=== PATIENT | male | born 1990 | race Caucasian/White ===

== ENCOUNTER 2016-05-27 06:40 | Inpatient (IN) ==
[2016-05-27] MEDS ORDERED: *HR* LORazepam 2 MG/ML VIAL ONE (07:04)
[2016-05-27] MEDS ORDERED: *HR* Rocuronium Bromide 50 MG/5 ML VIAL IVP ONE (07:18)
[2016-05-27] MEDS ORDERED: *HR* Etomidate 20 MG/10 ML AMPUL IVP ONE (07:18)
[2016-05-27] MEDS ORDERED: Propofol 500 MG/50 ML INFUS..BTL ONE (07:18)
[2016-05-27] MEDS ORDERED: *HR* LORazepam 2 MG/ML VIAL IVP ONE (07:24)
[2016-05-27] MEDS ORDERED: Propofol 500 MG/50 ML INFUS..BTL IVC SCH (07:30)
--- NOTE | 2016-05-27 07:31 | Emergency Department Note ---
Overdose - [facility] Narrative Medical decision making narrative: 26-year-old male presents to the ER due to unresponsiveness. Patient presented in respiratory arrest. Corrected with masking. Patient was given a total of 16 mg of Narcan with only a modest reversal in his respiratory status and mentation. Patient continued to eat combative requiring intubation for airway securement and continuation of treatment. Family reports a history of IV drug use in the past. He was found down this morning and his home with an unknown last known well. He was initially hypothermic here at 94.4. Liver applied. EKG shows sinus tachycardia. Head CT, cervical spine CT and chest x-ray are unremarkable. He has a leukocytosis of 20,000 likely stress response. Lactate of 9.6 likely secondary to hypoxia. He also has end organ damage with an ELROY and transaminitis. UDS positive for marijuana and cocaine. Case discussed with the care process manager and admitted to the ICU in stable condition. - Lab Data Lab results reviewed: Yes I reviewed the patient's lab results. Result diagrams: 05/27/16 07:38 05/27/16 07:38 Lab Results 05/27/16 05/27/16 05/27/16 Range/Units 07:38 07:38 07:38 WBC 20.1 H (4.3-11.1) K/mcL RBC 5.21 (4.19-5.50) M/mcL Hgb 16.1 (12.9-16.9) g/dL Hct 51.5 H (37.5-50.1) % MCV 98.8 (83.0-100.0) fL MCH 30.9 (28.0-33.3) pg MCHC 31.3 L (31.6-35.5) g/dL RDW 12.4 (11.5-14.5) % Plt Count 316 (140-400) K/mcL MPV 8.3 L (9.4-12.4) fL Immature Gran % 3.2 (0-4) % Seg Neutrophils % 78.7 % Lymphocytes % 14.1 % Monocytes % 2.7 % Eosinophils % 0.8 % Basophils % 0.5 % Neutrophils # 15.8 H (1.6-8.9) K/mcL Lymphocytes # 2.8 (0.6-4.6) K/mcL Monocytes # 0.6 (0.0-1.3) K/mcL Eosinophils # 0.2 (0.0-0.6) K/mcL Basophils # 0.1 (0.0-0.2) K/mcL Immature Plt Fraction 1.6 (1.1-6.1) % ABG pH (7.32-7.45) pH Units ABG pCO2 (35-45) mmHg ABG pO2 (85-104) mmHg ABG HCO3 (21-27) mEQ/L ABG Total CO2 (20-26) mEq/L ABG O2 Saturation (95-98) % ABG Base Excess (-2.0 to 3.0) mEq/L Respiration Rate Blood Gas Modality Inspired O2 % Tidal Volume cc PEEP cm H2O Sodium 142 (136-145) mEq/L Potassium 3.6 (3.5-4.5) mEq/L Chloride 104 (98-109) mEq/L Carbon Dioxide 17 L (19-29) mEq/L BUN 18 (8-26) mg/dL Creatinine 1.94 H (0.72-1.25) mg/dL Est GFR ( Amer) 50 L (> 60) Est GFR (Non-Af Amer) 41 L (> 60) BUN/Creatinine Ratio 9 (6-26) Glucose 170 H (70-99) mg/dL Calculated Osmolality 300 (280-300) Lactic Acid 9.7 H* (0.5-2.2) mmol/L Calcium 9.4 (8.6-10.8) mg/dL Total Bilirubin 0.4 (0.2-1.2) mg/dL Direct Bilirubin 0.2 (0.0-0.5) mg/dL Indirect Bilirubin 0.2 (0.0-1.2) mg/dL AST 255 H (5-34) Units/L ALT 664 H (0-55) Units/L Alkaline Phosphatase 174 H (38-126) Units/L Creatine Kinase (30-200) Units/L Serum Total Protein 8.2 (6.0-8.3) g/dL Albumin 4.0 (3.5-5.0) g/dL Globulin 4.2 H (2.4-3.5) g/dL Albumin/Globulin Ratio 1.0 L (1.1-2.2) Urine Color (Yellow) Urine Clarity (Clear) Urine pH (5.0-8.0) pH Units Ur Specific [place] (1.010-1.025) Urine Protein (Neg-Trace) mg/dL Urine Glucose (UA) (Normal) mg/dL Urine Ketones (Negative) mg/dL Urine Blood (Negative) Urine Nitrite (Negative) Urine Bilirubin (Negative) Urine Urobilinogen (Normal) mg/dL Ur Leukocyte Esterase (Negative) Urine Microscopic RBC (0-3) per hpf Urine Microscopic WBC (0-3) per hpf Ur Squamous Epith Cells (None-Few) per lpf Urine Bacteria (None-Few) per hpf Hyaline Casts (None-Few) per lpf Salicylates < 5.0 L (15-30) mg/dL Urine Opiates Screen (Ihveoe=321) ng/mL Acetaminophen < 1.0 L (10-30) mcg/mL Ur Barbiturates Screen (Aydypf=053) ng/mL Ur Phencyclidine Scrn (Cutoff=25) ng/mL Ur Amphetamines Screen (Hnswin=0284) ng/mL U Benzodiazepines Scrn (Dqncix=131) ng/mL Urine Cocaine Screen (Cutoff= 300) ng/mL U Marijuana (THC) Screen (Cutoff = 50) ng/mL Ethyl Alcohol < 10 (0-10) mg/dL 05/27/16 05/27/16 05/27/16 Range/Units 07:38 07:45 07:50 WBC (4.3-11.1) K/mcL RBC (4.19-5.50) M/mcL Hgb (12.9-16.9) g/dL Hct (37.5-50.1) % MCV (83.0-100.0) fL MCH (28.0-33.3) pg MCHC (31.6-35.5) g/dL RDW (11.5-14.5) % Plt Count (140-400) K/mcL MPV (9.4-12.4) fL Immature Gran % (0-4) % Seg Neutrophils % % Lymphocytes % % Monocytes % % Eosinophils % % Basophils % % Neutrophils # (1.6-8.9) K/mcL Lymphocytes # (0.6-4.6) K/mcL Monocytes # (0.0-1.3) K/mcL Eosinophils # (0.0-0.6) K/mcL Basophils # (0.0-0.2) K/mcL Immature Plt Fraction (1.1-6.1) % ABG pH 7.01 L* (7.32-7.45) pH Units ABG pCO2 77 H* (35-45) mmHg ABG pO2 245 H (85-104) mmHg ABG HCO3 19.4 L (21-27) mEQ/L ABG Total CO2 21.8 (20-26) mEq/L ABG O2 Saturation 100 H (95-98) % ABG Base Excess -13.6 L (-2.0 to 3.0) mEq/L Respiration Rate Blood Gas Modality ASSIST CONTROL Inspired O2 50 % Tidal Volume cc PEEP cm H2O Sodium (136-145) mEq/L Potassium (3.5-4.5) mEq/L Chloride (98-109) mEq/L Carbon Dioxide (19-29) mEq/L BUN (8-26) mg/dL Creatinine (0.72-1.25) mg/dL Est GFR ( Amer) (> 60) Est GFR (Non-Af Amer) (> 60) BUN/Creatinine Ratio (6-26) Glucose (70-99) mg/dL Calculated Osmolality (280-300) Lactic Acid (0.5-2.2) mmol/L Calcium (8.6-10.8) mg/dL Total Bilirubin (0.2-1.2) mg/dL Direct Bilirubin (0.0-0.5) mg/dL Indirect Bilirubin (0.0-1.2) mg/dL AST (5-34) Units/L ALT (0-55) Units/L Alkaline Phosphatase (38-126) Units/L Creatine Kinase 524 H (30-200) Units/L Serum Total Protein (6.0-8.3) g/dL Albumin (3.5-5.0) g/dL Globulin (2.4-3.5) g/dL Albumin/Globulin Ratio (1.1-2.2) Urine Color Yellow (Yellow) Urine Clarity Clear (Clear) Urine pH 6.0 (5.0-8.0) pH Units Ur Specific [place] 1.026 H (1.010-1.025) Urine Protein 100 H (Neg-Trace) mg/dL Urine Glucose (UA) Normal (Normal) mg/dL Urine Ketones Negative (Negative) mg/dL Urine Blood Small H (Negative) Urine Nitrite Negative (Negative) Urine Bilirubin Negative (Negative) Urine Urobilinogen Normal (Normal) mg/dL Ur Leukocyte Esterase Negative (Negative) Urine Microscopic RBC 0-3 (0-3) per hpf Urine Microscopic WBC 5-15 H (0-3) per hpf Ur Squamous Epith Cells Many H (None-Few) per lpf Urine Bacteria None Seen (None-Few) per hpf Hyaline Casts None Seen (None-Few) per lpf Salicylates (15-30) mg/dL Urine Opiates Screen (Ucyavz=340) ng/mL Acetaminophen (10-30) mcg/mL Ur Barbiturates Screen (Xvdbis=070) ng/mL Ur Phencyclidine Scrn (Cutoff=25) ng/mL Ur Amphetamines Screen (Fhqgpp=6384) ng/mL U Benzodiazepines Scrn (Felnyx=469) ng/mL Urine Cocaine Screen (Cutoff= 300) ng/mL U Marijuana (THC) Screen (Cutoff = 50) ng/mL Ethyl Alcohol (0-10) mg/dL 05/27/16 05/27/16 05/27/16 Range/Units 07:50 09:22 09:32 WBC (4.3-11.1) K/mcL RBC (4.19-5.50) M/mcL Hgb (12.9-16.9) g/dL Hct (37.5-50.1) % MCV (83.0-100.0) fL MCH (28.0-33.3) pg MCHC (31.6-35.5) g/dL RDW (11.5-14.5) % Plt Count (140-400) K/mcL MPV (9.4-12.4) fL Immature Gran % (0-4) % Seg Neutrophils % % Lymphocytes % % Monocytes % % Eosinophils % % Basophils % % Neutrophils # (1.6-8.9) K/mcL Lymphocytes # (0.6-4.6) K/mcL Monocytes # (0.0-1.3) K/mcL Eosinophils # (0.0-0.6) K/mcL Basophils # (0.0-0.2) K/mcL Immature Plt Fraction (1.1-6.1) % ABG pH 7.32 D (7.32-7.45) pH Units ABG pCO2 49 H D (35-45) mmHg ABG pO2 52 L (85-104) mmHg ABG HCO3 25.2 (21-27) mEQ/L ABG Total CO2 26.7 H (20-26) mEq/L ABG O2 Saturation 83 L (95-98) % ABG Base Excess -1.6 (-2.0 to 3.0) mEq/L Respiration Rate 20 Blood Gas Modality ASSIST CONTROL Inspired O2 30 % Tidal Volume 450 cc PEEP 5 cm H2O Sodium (136-145) mEq/L Potassium (3.5-4.5) mEq/L Chloride (98-109) mEq/L Carbon Dioxide (19-29) mEq/L BUN (8-26) mg/dL Creatinine (0.72-1.25) mg/dL Est GFR ( Amer) (> 60) Est GFR (Non-Af Amer) (> 60) BUN/Creatinine Ratio (6-26) Glucose (70-99) mg/dL Calculated Osmolality (280-300) Lactic Acid 5.2 H* (0.5-2.2) mmol/L Calcium (8.6-10.8) mg/dL Total Bilirubin (0.2-1.2) mg/dL Direct Bilirubin (0.0-0.5) mg/dL Indirect Bilirubin (0.0-1.2) mg/dL AST (5-34) Units/L ALT (0-55) Units/L Alkaline Phosphatase (38-126) Units/L Creatine Kinase (30-200) Units/L Serum Total Protein (6.0-8.3) g/dL Albumin (3.5-5.0) g/dL Globulin (2.4-3.5) g/dL Albumin/Globulin Ratio (1.1-2.2) Urine Color (Yellow) Urine Clarity (Clear) Urine pH (5.0-8.0) pH Units Ur Specific [place] (1.010-1.025) Urine Protein (Neg-Trace) mg/dL Urine Glucose (UA) (Normal) mg/dL Urine Ketones (Negative) mg/dL Urine Blood (Negative) Urine Nitrite (Negative) Urine Bilirubin (Negative) Urine Urobilinogen (Normal) mg/dL Ur Leukocyte Esterase (Negative) Urine Microscopic RBC (0-3) per hpf Urine Microscopic WBC (0-3) per hpf Ur Squamous Epith Cells (None-Few) per lpf Urine Bacteria (None-Few) per hpf Hyaline Casts (None-Few) per lpf Salicylates (15-30) mg/dL Urine Opiates Screen Negative (Xpjlbw=600) ng/mL Acetaminophen (10-30) mcg/mL Ur Barbiturates Screen Negative (Tdrxub=072) ng/mL Ur Phencyclidine Scrn Negative (Cutoff=25) ng/mL Ur Amphetamines Screen Negative (Ejztmo=8881) ng/mL U Benzodiazepines Scrn Negative (Cuojiy=415) ng/mL Urine Cocaine Screen Positive H (Cutoff= 300) ng/mL U Marijuana (THC) Screen Positive H (Cutoff = 50) ng/mL Ethyl Alcohol (0-10) mg/dL - Radiology Data Radiology results reviewed: Yes I reviewed the patient's radiology results. Chest X-Ray 05/27/16 07:17 IMPRESSION: Clear lungs. Proper position of lines and tubes D/ / Bowen Arita MD / Bowen Arita MD Interpreting Provider: Bowen Arita MD Head CT 05/27/16 07:17 IMPRESSION: No acute intracranial abnormality. D/ / Bowen Arita MD / Bowen Arita MD Interpreting Provider: Bowen Arita MD Cervical Spine CT 05/27/16 08:02 IMPRESSION: No acute abnormality of the cervical spine. Left otomastoiditis. D/ / 05/27/2016 08:44:24 Darwin Alba MD / karol Interpreting Provider: Darwin Alba MD - EKG Data EKG attestation: Yes I reviewed and interpreted this EKG. EKG results narrative: EKG demonstrates sinus tachycardia with a rate of 126. Normal axis. W[place] interval 127 QRS duration [address] elevations or depressions. No acute ischemic findings. Overdose HPI - General Chief Complaint: ED Overdose Stated Complaint: OD Time Seen by Provider: 05/27/16 07:16 Source: family Mode of arrival: EMS Limitations: altered mental status Nursing Notes Reviewed: Yes Vital Signs Reviewed: Yes - History of Present Illness HPI Narrative: 26-year-old male previously healthy presents to the ER via EMS due to unresponsiveness. Patient was found this morning by his sister. Reports that she went downstairs to get ready for work and found him on the floor. No drug paraphernalia present. Reports a history of IV drug use in the past. Unsure when he last used. Patient presents to the ER obtunded. Patient was initially cyanotic which corrected with [id number]. No response to sternal rub. Patient was given a total of 16 mg of Narcan with a slight improvement in his mental status. Patient continued to thrash in the bed despite being restrained. Patient intubated for airway securement and to prevent disruption of treatment. Pt Subjective Complaint: other (unknown) Onset (ago): unknown (unknown) Intent: unknown How Overdose Was Discovered: other (Sister found him this morning when she went downstairs to get ready for work) Treatments Prior to Arrival: oxygen - Related Data Home Medications Medication Instructions Recorded Confirmed Unable To Obtain [Unable to Obtain] 05/27/16 05/27/16 Allergies Allergy/AdvReac Type Severity Reaction Status Date / Time No Known Allergies Allergy Verified 12/01/15 17:58 Limitations: ROS unobtainable due to patients medical condition Past Medical History - Past Medical History Attestation: Yes The following information was validated with the patient. Source: old records reviewed, obtained from family Medical history: Reports: no medical history Surgical history: Reports: no surgical history Psychiatric history: Reports: no psych history - Social History Smoking Status: Current every day smoker Smokeless Tobacco Status: No Alcohol use: Reports: occasionally Drug use: Reports: opiates, marijuana Physical Exam - General Limitations: altered mental status General appearance: obtunded - Head Head exam: atraumatic, normocephalic, normal inspection - Eye Eye exam: Present: normal appearance, PERRL, miosis - ENT ENT exam: normal exam, normal oropharynx - Neck Neck exam: Present: normal inspection - Chest Chest inspection: Present: normal inspection, symmetric chest wall rise - Respiratory Respiratory exam: Present: normal lung sounds bilaterally - Cardiovascular Cardiovascular exam: Present: normal rhythm, tachycardia, normal heart sounds - Abdominal Exam Abdominal exam: Present: soft. Absent: distention, rigidity - Extremities Exam Extremities exam: Present: normal inspection - Expanded Upper Extremity Exam Shoulder exam: Present: normal inspection Arm exam: Present: normal inspection Elbow exam: Present: normal inspection Forearm/Wrist exam: Present: normal inspection Hand exam: Present: normal inspection Vascular exam: Normal: radial pulse - Expanded Lower Extremity Exam Hip/Pelvis exam: Present: normal inspection Upper leg exam: Present: normal inspection Knee exam: Present: normal inspection Lower leg exam: Present: normal inspection Ankle exam: Present: normal inspection Foot/toe exam: Present: normal inspection - Neurological Exam Neurological exam: Present: other (Unable to assess). Absent: alert, oriented X3 - Psychiatric Psychiatric exam: Present: other (Unable to assess) - Skin Skin exam: Present: warm, dry, intact, normal color Course Course Narrative: Patient seen and examined. Vital signs reviewed. He is tachycardic here. Patient presented right at shift change. Unknown exactly what time this happened. Patient was given a total of 16 mg of IV Narcan with improvement in his respiratory status but continued to be altered and combative. Patient would not follow commands. Patient was intubated shortly after arrival for airway securement and to prevent disruption of treatment. We will obtain an EKG , chest x-ray for confirmation, basic labs, ABG, CPK, urinalysis and urine drug screen. Vision placed on propofol infusion for sedation. We will admit to the ICU for further management. - Reevaluation(s) Reevaluation #1: Patient remained tachycardic here. We will order another fluid bolus. Lactate came back at 9.6. Also has end organ damage with a KI and transaminitis. Family updated on findings. Vital Signs Temperature 0 F L 05/27/16 06:42 Pulse Rate 81 05/27/16 06:42 Respiratory Rate 10 05/27/16 06:42 Blood Pressure 127/101 05/27/16 06:42 O2 Sat by Pulse Oximetry 100 05/27/16 06:42 Temperature 96.6 F L 05/27/16 09:58 Pulse Rate 127 05/27/16 09:35 Respiratory Rate 20 05/27/16 09:58 Blood Pressure 136/90 05/27/16 09:58 O2 Sat by Pulse Oximetry 86 L 05/27/16 09:35 Oxygen Delivery Oxygen Delivery Ventilator Procedures - Intubation Time out performed: No sedative: Etomidate Mg Given: 20 paralytic: Rocuronium Mg Given: 100 Laryngoscope: Herbert ET Tube Size: 7 ET Tube Uncuffed: No Tube Secured Depth (cm): 23 Tube Secured Location: lips Tube Placement Confirmation: visualized tube passing through cords, equal breath sounds bilaterally, no breath sounds over epigastrium, confirmation by capnometry Patient Tolerated Procedure: well Intubation Complications: none Critical Care Time Critical Care Time: Yes Total Critical Care Time: 60 Attestation: The high probability of a clinically significant, sudden or life threatening deterioration of the [resp] system(s) required my full and direct attention, intervention and personal management. The aggregate critical care time was [60] minutes. This time is in addition to time spent performing reported procedures but includes the following: [X] Data Review and interpretation [X] Patient assessment and monitoring of vital signs [X] Documentation [X] Medication orders and management Disposition Clinical Impression: Transaminitis, ELROY (acute kidney injury), Positive urine drug screen, Lactic acidosis Drug overdose Qualifiers: Encounter type: initial encounter Injury intent: accidental or unintentional Qualified Code(s): T50.901A - Poisoning by unspecified drugs, medicaments and biological substances, accidental (unintentional), initial encounter Altered mental status Qualifiers: Altered mental status type: delirium Qualified Code(s): R41.0 - Disorientation , unspecified Leukocytosis Qualifiers: Leukocytosis type: other Qualified Code(s): D72.828 - Other elevated white blood cell count Disposition: Admitted As Inpatient Condition: Critical S.B.A.Isis. - S.B.A.RCristiana Situation: Demographics, MOA Background: Presenting Complaint Assessment: Vital Signs, Course and respsone to treatment, Exam Concerns, Patient/Family Expectation, Pertinant Lab Results, Outstanding Labs Recommendation: Barrier(s) to disposition, Recommendation based on pending studies, treatments, or consults S.B.A.RCristiana Report Given to: Dr. Derek DaviesBCristianaAYao Repor Time: 09:31 Attestation Statement - Attestation Attestation: I personally interviewed and examined this patient and my medical decision- making was reviewed with the ED Resident Physician, Dr. Fallon. I agree with the documented findings, disposition and treatment plan as described except to the extent set forth below. Patient is a 26-year-old white male who is brought in by EMS prior to my shift start time and was actually initially evaluated by the night patrol inspector staff and physician. He was brought in for altered mental status after came in unresponsive on initial presentation with suspected drug overdose. Patient was reportedly found slumped over on a chair at his home for an unknown period of time. No obvious history of trauma or falls. She received a large amount of Narcan with some response patient was groaning but intelligible speech and nonpurposeful movements. The night patrol inspector team did intubate for airway protection the patient and initiate labs and imaging. Patient was signed out to accept that point, upon signout patient was significantly tachycardic with a heart rate in the 130s sinus in nature. Blood pressure was stable following intubation. Patient was oxygenating well but very hypercarbic on initial ABG. Vent rate was increased and we will reassess with subsequent ABG one-hour after been change. Patient tolerating that well at this time resting comfortably. Pt with a significant leukocytosis with a left shift, and elevated lactate. IV fluid boluses then initiated and antibiotics covering sepsis of unknown etiology will be initiated as well. Patient with mild renal insufficiency compared to baseline. Patient also with elevated transaminases. CT imaging of the head neck unremarkable for any traumatic injury or intracranial abnormality. Portal chest x-ray showed adequate tube placement with no other acute process seen. Unclear as to whether patient could have sustained some form of anoxic brain injury secondary to an unknown down time of unresponsiveness prior to arrival to the ED. Patient very ill at this time and in critical condition. Patient will be admitted to the ICU for further evaluation and management.
[2016-05-27] MEDS: 0.9 % Sodium Chloride 1,000 ML IVC SCH ×3 (07:35→16:42)
[2016-05-27 07:45] LABS: Basophils # 0.1 K/mcL (0.0-0.2); Basophils % 0.5 %; Eosinophils # 0.2 K/mcL (0.0-0.6); Eosinophils % 0.8 %; Hematocrit 51.5 % (37.5-50.1); Hemoglobin 16.1 g/dL (12.9-16.9); Immature Granulocytes % 3.2 % (0-4); Immature Platelets 1.6 % (1.1-6.1); Lymphocytes # 2.8 K/mcL (0.6-4.6); Lymphocytes % 14.1 %; Mean Corpuscular HGB Conc 31.3 g/dL (31.6-35.5); Mean Corpuscular Hemoglobin 30.9 pg (28.0-33.3); Mean Corpuscular Volume 98.8 fL (83.0-100.0); Mean Platelet Volume 8.3 fL (9.4-12.4); Monocytes # 0.6 K/mcL (0.0-1.3); Monocytes % 2.7 %; Neutrophils # 15.8 K/mcL (1.6-8.9); Platelet Count 316 K/mcL (140-400); Red Blood Count 5.21 M/mcL (4.19-5.50); Red Cell Distribution Width 12.4 % (11.5-14.5); Segmented Neutrophils % 78.7 %
--- NOTE | 2016-05-27 07:47 | Emergency Department Note ---
START Narrative - START START: For this encounter, I have reviewed the resident, PAINTER SIGN MAINTENANCE, or PA documentation, treatment plan, and medical decision making; and I have had face to face time with this patient. 26-year-old male brought in by family unresponsive. Sr. reports she woke and the patient was sitting, slumped over on the ground with agonal breathing. She states she sat him up and tried to wake him but was unsuccessful. She put him in a car and drove him to the emergency department. On arrival to the emergency department the patient continued to have agonal breathing with cyanosis. Patient was hypoxic to 70% as SPO2 monitor was initiated, this improved with bag valve mask ventilation. Patient was given a total of 16 mg of Narcan with significant improvement of symptoms, breathing on his own, moaning in the bed. Patient was not back to his baseline however. Sr. is not aware of other ingestion. She denied drug paraphernalia being present near him when she found him. She denied history of other drug abuse. Patient was moaning and moving all extremities in the emergency department bed. Patient was opening his eyes spontaneously. Patient unable to follow small commands. Patient was intubated for protection of himself and of the staff. Patient will require extensive evaluation for additional drug use versus possible anoxic brain injury. Pt care signed out to Dr. Leo pending further evaluation and disposition.
[2016-05-27 07:56] LABS: ABG Base Excess -13.6 mEq/L (-2.0 to 3.0); ABG HCO3 19.4 mEQ/L (21-27); ABG Oxygen Saturation 100 % (95-98); ABG PO2 245 mmHg (85-104); ABG TCO2 21.8 mEq/L (20-26); Blood Gas FiO2 50 %
[2016-05-27] MEDS ORDERED: Vancomycin 1,000 MG in D5% in Water 250 ML IVPB ONE (07:58)
[2016-05-27] MEDS ORDERED: Piperacillin/Tazobactam 3.375 GM in D5% in Water (Mini-Bag+) 100 ML IVPB ONE (07:58)
[2016-05-27] MEDS ORDERED: 0.9 % Sodium Chloride 1,000 ML IVC ONE ×2 (07:58→09:23)
[2016-05-27 08:00] LABS: Alanine Aminotransferase 664 Units/L (0-55); Alkaline Phosphatase 174 Units/L (38-126); Aspartate Amino Transferase 255 Units/L (5-34); BUN/Creatinine Ratio 9 (6-26); Bilirubin,Direct 0.2 mg/dL (0.0-0.5); Bilirubin,Indirect 0.2 mg/dL (0.0-1.2); Bilirubin,Total 0.4 mg/dL (0.2-1.2); Blood Urea Nitrogen 18 mg/dL (8-26); Calcium 9.4 mg/dL (8.6-10.8); Carbon Dioxide 17 mEq/L (19-29); Chloride 104 mEq/L (98-109); Globulin 4.2 g/dL (2.4-3.5); Glucose 170 mg/dL (70-99); Osmolality,Calculated 300 (280-300); Potassium 3.6 mEq/L (3.5-4.5); Sodium 142 mEq/L (136-145); Total Protein 8.2 g/dL (6.0-8.3); eGFR For African Americans 50 (> 60); eGFR For Non-African Americans 41 (> 60)
[2016-05-27 08:00] LABS: Bilirubin,Urine Negative (Negative); Blood,Urine Small (Negative); Clarity,Urine Clear (Clear); Color,Urine Yellow (Yellow); Glucose,Urine (UA) Normal (Normal); Ketones,Urine Negative (Negative); Leukocyte Esterase,Urine Negative (Negative); Nitrite,Urine Negative (Negative); Protein,Urine 100 mg/dL (Neg-Trace); Specific Gravity,Urine 1.026 (1.010-1.025); Urobilinogen,Urine Normal (Normal)
[2016-05-27 08:00] LABS: ABG PCO2 77 mmHg (35-45); ABG PH 7.01 pH Units (7.32-7.45)
[2016-05-27 08:01] LABS: Bacteria,Urine None Seen per hpf (None-Few); Hyaline Casts,Urine None Seen per lpf (None-Few); RBC,Urine 0-3 per hpf (0-3); Squamous Epithelial Cell,Urine Many per lpf (None-Few)
[2016-05-27 08:01] LABS: Acetaminophen < 1.0 mcg/mL (10-30); Ethanol < 10 mg/dL (0-10); Salicylate < 5.0 mg/dL (15-30)
--- NOTE | 2016-05-27 08:09 | Emergency Department Note ---
Overdose - MDM Narrative Medical decision making narrative: Unresponsive, altered mental status, opioid - Medical Records Medical records reviewed: Yes I reviewed the patient's medical records. - Lab Data Lab results reviewed: Yes I reviewed the patient's lab results. Result diagrams: 05/27/16 07:38 Lab Results 05/27/16 05/27/16 05/27/16 Range/Units 07:38 07:38 07:38 WBC 20.1 H (4.3-11.1) K/mcL RBC 5.21 (4.19-5.50) M/mcL Hgb 16.1 (12.9-16.9) g/dL Hct 51.5 H (37.5-50.1) % MCV 98.8 (83.0-100.0) fL MCH 30.9 (28.0-33.3) pg MCHC 31.3 L (31.6-35.5) g/dL RDW 12.4 (11.5-14.5) % Plt Count 316 (140-400) K/mcL MPV 8.3 L (9.4-12.4) fL Immature Gran % 3.2 (0-4) % Seg Neutrophils % 78.7 % Lymphocytes % 14.1 % Monocytes % 2.7 % Eosinophils % 0.8 % Basophils % 0.5 % Neutrophils # 15.8 H (1.6-8.9) K/mcL Lymphocytes # 2.8 (0.6-4.6) K/mcL Monocytes # 0.6 (0.0-1.3) K/mcL Eosinophils # 0.2 (0.0-0.6) K/mcL Basophils # 0.1 (0.0-0.2) K/mcL Immature Plt Fraction 1.6 (1.1-6.1) % ABG pH (7.32-7.45) pH Units ABG pCO2 (35-45) mmHg ABG pO2 (85-104) mmHg ABG HCO3 (21-27) mEQ/L ABG Total CO2 (20-26) mEq/L ABG O2 Saturation (95-98) % ABG Base Excess (-2.0 to 3.0) mEq/L Blood Gas Modality Inspired O2 % Lactic Acid 9.7 H* (0.5-2.2) mmol/L Creatine Kinase 524 H (30-200) Units/L 05/27/16 Range/Units 07:45 WBC (4.3-11.1) K/mcL RBC (4.19-5.50) M/mcL Hgb (12.9-16.9) g/dL Hct (37.5-50.1) % MCV (83.0-100.0) fL MCH (28.0-33.3) pg MCHC (31.6-35.5) g/dL RDW (11.5-14.5) % Plt Count (140-400) K/mcL MPV (9.4-12.4) fL Immature Gran % (0-4) % Seg Neutrophils % % Lymphocytes % % Monocytes % % Eosinophils % % Basophils % % Neutrophils # (1.6-8.9) K/mcL Lymphocytes # (0.6-4.6) K/mcL Monocytes # (0.0-1.3) K/mcL Eosinophils # (0.0-0.6) K/mcL Basophils # (0.0-0.2) K/mcL Immature Plt Fraction (1.1-6.1) % ABG pH 7.01 L* (7.32-7.45) pH Units ABG pCO2 77 H* (35-45) mmHg ABG pO2 245 H (85-104) mmHg ABG HCO3 19.4 L (21-27) mEQ/L ABG Total CO2 21.8 (20-26) mEq/L ABG O2 Saturation 100 H (95-98) % ABG Base Excess -13.6 L (-2.0 to 3.0) mEq/L Blood Gas Modality ASSIST CONTROL Inspired O2 50 % Lactic Acid (0.5-2.2) mmol/L Creatine Kinase (30-200) Units/L - Radiology Data Radiology results reviewed: Yes I reviewed the patient's radiology results. Chest x-ray shows stable ET tube with bilateral aeration. Overdose HPI - General Chief Complaint: ED Overdose Stated Complaint: OD Time Seen by Provider: 05/27/16 07:16 Source: family Mode of arrival: EMS Limitations: altered mental status Nursing Notes Reviewed: Yes Vital Signs Reviewed: Yes - History of Present Illness HPI Narrative: Patient presented by family. Patient was found down in the house. History of drug abuse. No other information prior to arrival. Pt Subjective Complaint: accidental overdose - Related Data Home Medications Medication Instructions Recorded Confirmed No Known Home Drugs 12/01/15 12/01/15 Allergies Allergy/AdvReac Type Severity Reaction Status Date / Time No Known Allergies Allergy Verified 12/01/15 17:58 Limitations: ROS unobtainable due to patients medical condition Past Medical History - Past Medical History Source: old records reviewed, obtained from family Medical history: Reports: no medical history Surgical history: Reports: no surgical history Psychiatric history: Reports: no psych history - Social History Smoking Status: Current every day smoker Smokeless Tobacco Status: No Alcohol use: Reports: occasionally Drug use: Reports: opiates, marijuana Physical Exam - General Limitations: altered mental status General appearance: obtunded - Head Head exam: atraumatic, normocephalic, normal inspection - Eye Eye exam: Present: other (Patient has pinpoint pupils with no acute signs of trauma to the facial area extraocular muscles appear to be intact) - Chest Chest inspection: Present: normal inspection, symmetric chest wall rise - Respiratory Respiratory exam: Present: respiratory distress. Absent: wheezes, stridor, accessory muscle use - Cardiovascular Cardiovascular exam: Present: regular rate, normal rhythm, normal heart sounds - Extremities Exam Extremities exam: Present: normal inspection - Back Exam Back exam: Present: normal inspection Course Course Narrative: Patient presented to the emergency room by personal vehicle. Sister found him down in the living room this morning when she woke up. Unknown onset. Patient has a history of IV drug use. Sister denies any use here recently from what she knew. Last time she saw him was last night before she went to bed. Patient on presentation had agonal respirations. He was breathing spontaneously on his own but approximate 8-12 breaths per minute. Heart rate was stable. Blood pressure and monitor was placed immediately. IV access was obtained as quickly as possible. In the interim intermuscular Narcan was given as well as 2 mg of intranasal Narcan. Physical exam showed pinpoint pupils. No other visible signs of trauma or injury at this time. Multiple areas of reddening to the skin consistent with lying on an object were noted across the anterior chest wall and shoulders. No other visible injuries or trauma this time. Accu-Chek was collected with a glucose of 180. Patient treated as if she is an overdose along with underlying potential trauma. IV access was obtained in approximately 16 mg of Narcan was given at the bedside with mild change in mentation. Patient became combative but was not ever alert. Pupils did respond appropriately. Patient then was intubated for safety of the staff as well as the patient. Definitive imaging and testing to be completed at that time. Unknown toxidrome at this point or anoxic brain injury. Also concern for trauma considering over the next was seen the patient prior to the events here today. Broad evaluation with laboratory workup for this time. Intubation completed by Dr. Fallon please see procedural note from him. 20 mg of etomidate and 100 mg Timur utilized at this point for intubation. 2 mg of Ativan were given prior to that. Patient maintained appropriate blood pressure pulse are throughout the event. One attempt was made with appropriate placement of ET tube at 23 cm to the lip. Bilateral breath sounds noted. Oxygenation was appropriate. Patient this time is very concerning for underlying issues including deterioration of tissue secondary to rhabdo, pulmonary disease, brain injury, acidemia. Patient provided with 2 L of fluid immediately. CT imaging of the head and cervical spine ordered along with chest x-ray post intubation. Bilateral IVs placed at this time. Propofol drip for sedative medication at this point. Patient is stable but there is concern for debilitating injury sustained prior to coming in here to the emergency room. Vital signs of a maintained throughout the entire course of care. Signout completed to Dr. Leo and Dr. Fallon. They will complete the course of care. Family was informed. sister. was at the bedside through the beginning process of the resuscitation. Patient is concerning for clinical decompensation as well as poor outcome. Family informed of this. Patient stable Vital Signs Temperature 0 F L 05/27/16 06:42 Pulse Rate 81 05/27/16 06:42 Respiratory Rate 10 05/27/16 06:42 Blood Pressure 127/101 05/27/16 06:42 O2 Sat by Pulse Oximetry 100 05/27/16 06:42 Temperature 0 F L 05/27/16 06:42 Pulse Rate 128 05/27/16 07:17 Respiratory Rate 22 05/27/16 07:17 Blood Pressure 157/85 05/27/16 07:17 O2 Sat by Pulse Oximetry 100 05/27/16 07:17 Oxygen Delivery Oxygen Delivery Room Air,Ambu Bag Disposition Clinical Impression: Drug overdose Qualifiers: Encounter type: initial encounter Injury intent: accidental or unintentional Qualified Code(s): T50.901A - Poisoning by unspecified drugs, medicaments and biological substances, accidental (unintentional), initial encounter Altered mental status Qualifiers: Altered mental status type: delirium Qualified Code(s): R41.0 - Disorientation , unspecified Disposition: Still a Patient Condition: Critical Referrals: NO,PCP [Primary Care Provider] - Forms: ED Satisfaction Letter Time of Disposition: 08:11
[2016-05-27 08:27] LABS: Amphetamine Screen,Urine Negative ng/mL (Cutoff=1000); Barbiturate Screen,Urine Negative ng/mL (Cutoff=200); Benzodiazepines Screen,Urine Negative ng/mL (Cutoff=200); Cannabinoid Screen,Urine Positive ng/mL (Cutoff = 50); Cocaine Screen,Urine Positive ng/mL (Cutoff= 300); Opiate Screen,Urine Negative ng/mL (Cutoff=300); Phencyclidine Screen,Urine Negative ng/mL (Cutoff=25)
--- NOTE | 2016-05-27 09:33 | Pulmonology History & Physical ---
<Sylvester Szymanski - Last Filed: 05/27/16 15:50> Date of Encounter: 05/27/16 Time of Encounter: 09:31 Assessment and Plan (1) Acute respiratory failure with hypoxia and hypercapnia Current visit: Yes Status: Acute When patient was brought to the ER he was agitated, combative and having agonal breathing with cyanosis, hypoxic to 70% on pulse ox, initial ABG showed pH 7.01 , PCO2 77 and bicarbonate 19.4, after patient was intubated and on mechanical ventilation, pH improved to 7.32, PCO2 down to 49 and bicarbonate 25.2. His acute respiratory failure was likely secondary to illicit drug abuse, according to family members at the bedside, patient has a long history of illicit/IV drug abuse, multiple recent ER visits with heroine abuse in the last few months, and remote history of Xanax abuse, however they are unclear of what illicit drug he used last night, urine drug screen in the ER was positive for cocaine and marijuana, currently on mechanical ventilation and sedated, will continue to closely monitor his respiratory status in ICU. (2) SIRS (systemic inflammatory response syndrome) Current visit: Yes Status: Acute Initial vital sign in the ER showed hypothermia, tachycardia and tachypnea, labs showed leukocytosis with end organ damages, SIRS likely secondary to acute respiratory failure, unlikely underlying infectious process going on, chest x- ray and urinalysis showed no acute process, blood cultures 2 are pending, however patient received zosyn IV in the ER, will continue to closely monitor his vital signs in the ICU and recheck labs in the morning. (3) High anion gap metabolic acidosis Current visit: Yes Status: Acute Elevated anion gap of 21 with lactic acidosis of 9.7, delta-delta is 1.28, therefore it is pure AG metabolic acidosis, calculated osmoles is 300, will obtain measured osmoles to calculate osmolal gap, if it is more than 10, then likely there is possible underlying ingestions such as ethanol, methanol and/or ethylene/propylene glycol. His lactic acidosis is likely secondary to respiratory failure, currently intubated and sedated, will continue to oxygenate him well through mechanical ventilation and trend lactic acid level. (4) Lactic acidosis Current visit: Yes Status: Acute Initially 9.7 and repeated one came down to 5.2, most likely type A lactic acidosis from impairment in the tissue oxygenation secondary to acute hypoxic respiratory failure, currently patient has been intubated and sedated, continue to trend his lactic acid level. (5) ELROY (acute kidney injury) Current visit: Yes Status: Acute Serum creatinine level 1.94 with a GFR of 41, 2 months ago the levels were normal, likely this is due to impairment in tissue oxygenation from acute respiratory failure, CPK was elevated around 520, possibility of rhabdomyolysis cannot be excluded based on the history provided by his girlfriend, will resume NS IV fluid hydration, recheck CPK in AM, patient received total of 3 L normal saline IV fluid bolus in the ER, continue to avoid nephrotoxic agents and recheck renal function in the morning. (6) Elevated transaminase level Current visit: Yes Status: Acute AST 255, ALT 664 and Alkaline phosphatase 174, 2 months ago transaminase levels were normal, likely this is acute elevation secondary to end organ damage/ impairment in tissue oxygenation from acute respiratory failure, continue good oxygenation and repeat transaminase levels in the morning. (7) Illicit drug use Current visit: Yes Status: Acute Urine drug screen positive for marijuana and cocaine, multiple ER visits within the last several months for heroine abuse, patient eloped twice in the past, likely patient will need social media campaign manager consult when he is more stable for outpatient drug rehabilitation program. (8) DVT prophylaxis Current visit: Yes Status: Acute Heparin SQ BID. History of Present Illness Chief complaint: Unresponsiveness and acute respiratory failure HPI: Mr. 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 Patient's girlfriend found him sitting on the chair at home unresponsive, where he arrived in the ER , patient was having agonal breathing, agitated and combative, total 16 mg of Narcan were given with only a modest reversal in his respiratory status and mentation therefore he was intubated in the ER for airway securement. Labs showed leukocytosis over 20.1, serum creatinine of 1.94, lactic acid of 9.7 and elevated transaminases, urine drug screen was positive for marijuana and cocaine , initial vital signs showed hypothermia of 94.4 Fahrenheit, tachycardia and tachypnea. Chest x-ray, head and cervical CT showed no acute process. According to patient's family members and girlfriend at the bedside stated that last well-known time was last night around 1:30 AM, he was having a cold symptoms and sleeping issue therefore he was taking loza-edt-srifyic zzzquil and mucinex, unclear use of illicit drug overnight. Past Med Surg Social Fam HX - Past Medical History Medical history: no medical history Psychiatric history: no psych history - Past Surgical History Surgical History: no surgical history - Social History Smoking Status: Current every day smoker Alcohol use: occasionally Drug use: cocaine, opiates, marijuana, IVDU Current living situation: Other (moving house to house, he came from friend's house this time) - Family History Mother History Unknown: Yes Father History Unknown: Yes Medications and Allergies Unable To Obtain [Unable to Obtain] 05/27/16 [History] Allergies No Known Allergies Allergy (Verified 12/01/15 17:58) ROS unobtainable: due to endotracheal tube All Systems: A 10-system review of systems was performed and is negative for pertinent findings except as documented above in the HPI. Physical Examination Vital Signs: Vital Signs, Last 4 Hours Temp Pulse Resp BP Pulse Ox 05/27/16 08:50 94.4 F L 127 20 153/111 99 05/27/16 08:30 130 20 151/107 99 05/27/16 08:28 98 05/27/16 08:00 17 100 05/27/16 07:50 130 20 151/109 99 05/27/16 07:35 127 16 158/104 100 05/27/16 07:30 127 20 150/99 98 05/27/16 07:17 128 22 157/85 100 05/27/16 07:01 120 22 05/27/16 06:52 114 22 142/105 96 05/27/16 06:42 0 F L 81 10 127/101 100 General appearance: other (intubated, on sedation) Eyes: nonicteric, other (Pupils equal round and reactive to light) ENT: oropharynx moist Neck: supple, no lymphadenopathy Effort: other (Intubated) Inspection: normal Auscultation: bilateral: clear Cardiovascular: other (Regular rhythm but tachycardic) Gastrointestinal: normoactive bowel sounds, soft, non-distended Integumentary: other (Multiple tattoos on his upper and lower extremities) Musculoskeletal: no deformities pupils equal and round, other (Currently intubated and sedated) Results - Laboratory Findings CBC and BMP: 05/27/16 07:38 05/27/16 07:38 ABG ABG pH 7.01 pH Units (7.32-7.45) L* 05/27/16 07:45 ABG pCO2 77 mmHg (35-45) H* 05/27/16 07:45 ABG pO2 245 mmHg (85-104) H 05/27/16 07:45 ABG O2 Saturation 100 % (95-98) H 05/27/16 07:45 Abnormal lab findings: Abnormal lab results WBC 20.1 K/mcL (4.3-11.1) H 05/27/16 07:38 Hct 51.5 % (37.5-50.1) H 05/27/16 07:38 MCHC 31.3 g/dL (31.6-35.5) L 05/27/16 07:38 MPV 8.3 fL (9.4-12.4) L 05/27/16 07:38 Neutrophils # 15.8 K/mcL (1.6-8.9) H 05/27/16 07:38 ABG pH 7.01 pH Units (7.32-7.45) L* 05/27/16 07:45 ABG pCO2 77 mmHg (35-45) H* 05/27/16 07:45 ABG pO2 245 mmHg (85-104) H 05/27/16 07:45 ABG HCO3 19.4 mEQ/L (21-27) L 05/27/16 07:45 ABG O2 Saturation 100 % (95-98) H 05/27/16 07:45 ABG Base Excess -13.6 mEq/L (-2.0 to 3.0) L 05/27/16 07:45 Carbon Dioxide 17 mEq/L (19-29) L 05/27/16 07:38 Creatinine 1.94 mg/dL (0.72-1.25) H 05/27/16 07:38 Est GFR ( Amer) 50 (> 60) L 05/27/16 07:38 Est GFR (Non-Af Amer) 41 (> 60) L 05/27/16 07:38 Glucose 170 mg/dL (70-99) H 05/27/16 07:38 Lactic Acid 9.7 mmol/L (0.5-2.2) H* 05/27/16 07:38 AST 255 Units/L (5-34) H 05/27/16 07:38 ALT 664 Units/L (0-55) H 05/27/16 07:38 Alkaline Phosphatase 174 Units/L (38-126) H 05/27/16 07:38 Creatine Kinase 524 Units/L (30-200) H 05/27/16 07:38 Globulin 4.2 g/dL (2.4-3.5) H 05/27/16 07:38 Albumin/Globulin Ratio 1.0 (1.1-2.2) L 05/27/16 07:38 Ur Specific Starlight 1.026 (1.010-1.025) H 05/27/16 07:50 Urine Protein 100 mg/dL (Neg-Trace) H 05/27/16 07:50 Urine Blood Small (Negative) H 05/27/16 07:50 Urine Microscopic WBC 5-15 per hpf (0-3) H 05/27/16 07:50 Ur Squamous Epith Cells Many per lpf (None-Few) H 05/27/16 07:50 Salicylates < 5.0 mg/dL (15-30) L 05/27/16 07:38 Acetaminophen < 1.0 mcg/mL (10-30) L 05/27/16 07:38 Urine Cocaine Screen Positive ng/mL (Cutoff= 300) H 05/27/16 07:50 U Marijuana (THC) Screen Positive ng/mL (Cutoff = 50) H 05/27/16 07:50 <Joaquín Douglas M - Last Filed: 05/27/16 16:54> History of Present Illness HPI: Mr. Mckinley is a 26 year old male All Systems: A 10-system review of systems was performed and is negative for pertinent findings except as documented above in the HPI. Physical Examination Vital Signs: Vital Signs, Last 4 Hours Temp Pulse Resp BP Pulse Ox 05/27/16 15:43 15 98 05/27/16 15:00 99.7 F H 97 15 105/70 98 05/27/16 14:30 96 15 102/56 97 05/27/16 13:57 16 98 05/27/16 13:30 99 16 97/63 97 Results - Laboratory Findings CBC and BMP: 05/27/16 07:38 05/27/16 16:09 ABG ABG pH 7.32 pH Units (7.32-7.45) D 05/27/16 09:32 ABG pCO2 49 mmHg (35-45) H D 05/27/16 09:32 ABG pO2 52 mmHg (85-104) L 05/27/16 09:32 ABG O2 Saturation 83 % (95-98) L 05/27/16 09:32 Abnormal lab findings: Abnormal lab results WBC 20.1 K/mcL (4.3-11.1) H 05/27/16 07:38 Hct 51.5 % (37.5-50.1) H 05/27/16 07:38 MCHC 31.3 g/dL (31.6-35.5) L 05/27/16 07:38 MPV 8.3 fL (9.4-12.4) L 05/27/16 07:38 Neutrophils # 15.8 K/mcL (1.6-8.9) H 05/27/16 07:38 ABG pCO2 49 mmHg (35-45) H D 05/27/16 09:32 ABG pO2 52 mmHg (85-104) L 05/27/16 09:32 ABG Total CO2 26.7 mEq/L (20-26) H 05/27/16 09:32 ABG O2 Saturation 83 % (95-98) L 05/27/16 09:32 Potassium 4.6 mEq/L (3.5-4.5) H D 05/27/16 16:09 AST 255 Units/L (5-34) H 05/27/16 07:38 ALT 664 Units/L (0-55) H 05/27/16 07:38 Alkaline Phosphatase 174 Units/L (38-126) H 05/27/16 07:38 Creatine Kinase 524 Units/L (30-200) H 05/27/16 07:38 Troponin I 0.04 ng/mL (0-0.03) H* 05/27/16 16:09 Globulin 4.2 g/dL (2.4-3.5) H 05/27/16 07:38 Albumin/Globulin Ratio 1.0 (1.1-2.2) L 05/27/16 07:38 Ur Specific Starlight 1.026 (1.010-1.025) H 05/27/16 07:50 Urine Protein 100 mg/dL (Neg-Trace) H 05/27/16 07:50 Urine Blood Small (Negative) H 05/27/16 07:50 Urine Microscopic WBC 5-15 per hpf (0-3) H 05/27/16 07:50 Ur Squamous Epith Cells Many per lpf (None-Few) H 05/27/16 07:50 Salicylates < 5.0 mg/dL (15-30) L 05/27/16 07:38 Acetaminophen < 1.0 mcg/mL (10-30) L 05/27/16 07:38 Urine Cocaine Screen Positive ng/mL (Cutoff= 300) H 05/27/16 07:50 U Marijuana (THC) Screen Positive ng/mL (Cutoff = 50) H 05/27/16 07:50 - Attending Attestation I examined this patient and my medical decision-making was reviewed with the VIDEO NEWS EDITOR/PA/Advanced Practice Nurse/Resident Physician. I agree with the documented findings, disposition and treatment plan as described except to the extent set forth below. Patient seen and examined. Labs, radiology, chart personally reviewed. Agree with resident's history and physical, assessment, plan with following comments: ALARM SECURITY OR SURVEILLANCE MONITOR: Patient sedated and does not follows commands Pulmonary: Acceptable oxygenation and ventilation. Due to mental status change , patient will remain on a ventilator until his condition is more stable and his organs as well as acid base abnormalities improves. Patient will be on assist control and changed to receive Lantus for more comfort. Cardiovascular: stable, however his condition could deteriorate and patient is on IV fluid.. GI: Nutrition per dietary and GI prophylaxis per routine Heme: DVT prophylaxis per routine ID: There is no obvious source of infection and need for antibiotics at this time. Renal; urine out put and renal funtion reviewed. I am concerned about rhabdomyolysis, monitor CPK level and hydration. Also patient has severe lactic acidosis with some improvement, it is not clear to me at this time the reason, could be hypoperfusion and hypovolemia. Continue IV fluid and monitor the level. Endorcine: blood glucose is monitored Lines: all lines checked and no evidence of infections Skin: skin care to prevent pressure ulcers per nursing routine care Patient has very poor prognosis if he continue to have such lifestyle. He may need psych evaluation. I spent 35 min of Critical Care time with this patient. It involved decision making of high complexity to assess, manipulate, and support vital organ system failure and/or to prevent further life threatening deterioration of the patient' s condition. The time involved in the performance of separately reportable procedures was not counted toward critical care time.
[2016-05-27 09:45] LABS: ABG Base Excess -1.6 mEq/L (-2.0 to 3.0); ABG HCO3 25.2 mEQ/L (21-27); ABG Oxygen Saturation 83 % (95-98); ABG PCO2 49 mmHg (35-45); ABG PH 7.32 pH Units (7.32-7.45); ABG PO2 52 mmHg (85-104); ABG TCO2 26.7 mEq/L (20-26)
[2016-05-27 09:47] LABS: Blood Gas FiO2 30 %; Blood Gas PEEP 5 cm H2O; Blood Gas Respiration Rate 20; Blood Gas VT 450 cc
[2016-05-27] MEDS ORDERED: *HR* FentaNYL (PF) 100 MCG/2 ML VIAL IVP ONE (10:18)
[2016-05-27] MEDS ORDERED: Naloxone 0.4 MG/ML INJ IVP PRN (10:56)
[2016-05-27] MEDS: FentaNYL (PF) 1,000 MCG in 0.9 % Sodium Chloride 80 ML IVC SCH ×2 (11:15→21:25)
[2016-05-27] MEDS: Pantoprazole 40 MG VIAL IVP SCH (11:26)
--- NOTE | 2016-05-27 12:27 | Electrocardiograph Report ---
[facility] Test Date: 2016-05-27 Pat Name: Scot Mckinley Department: 104 Room: 12 Gender: M Traffic Operations Manager: PATRICIA : 1990 Requested By: Sunil Chaudhry Order Number: [id number] Reading MD: Greg Malin DO Measurements Intervals [place] Rate: 126 P: 65 RI: 127 QRS: 82 QRSD: 105 T: 42 QT: 346 QTc: 421 Interpretive Statements SINUS TACHYCARDIA ABNORMAL RHYTHM ECG INTERPRETATION BASED ON A DEFAULT AGE OF 40 YEARS Electronically Signed On 05-27-2016 12:25:35 EDT by Greg Malin DO
[2016-05-27 16:45] LABS: BUN/Creatinine Ratio 12 (6-26); Blood Urea Nitrogen 15 mg/dL (8-26); Calcium 8.6 mg/dL (8.6-10.8); Carbon Dioxide 23 mEq/L (19-29); Chloride 109 mEq/L (98-109); Glucose 82 mg/dL (70-99); Osmolality,Calculated 288 (280-300); Potassium 4.6 mEq/L (3.5-4.5); Sodium 139 mEq/L (136-145); eGFR For African Americans > 60 (> 60); eGFR For Non-African Americans > 60 (> 60)
[2016-05-27] MEDS: *HR* Heparin 5,000 UNIT/ML VIAL SQ SCH (18:17)
[2016-05-27] MEDS: Chlorhexidine Rinse 15 ML MOUTHWASH MM SCH (20:06)
[2016-05-27] MEDS ORDERED: Lacri-Lube 3.5 GM TUBE BOTH EYES SCH (21:00)
[2016-05-28] MEDS: 0.9 % Sodium Chloride 1,000 ML IVC SCH (01:46)
[2016-05-28 04:09] LABS: ABG Base Excess 1.4 mEq/L (-2.0 to 3.0); ABG HCO3 28.1 mEQ/L (21-27); ABG Oxygen Saturation 99 % (95-98); ABG PCO2 52 mmHg (35-45); ABG PH 7.34 pH Units (7.32-7.45); ABG PO2 126 mmHg (85-104); ABG TCO2 29.7 mEq/L (20-26)
[2016-05-28 04:10] LABS: Blood Gas FiO2 40 %
[2016-05-28] MEDS: *HR* Heparin 5,000 UNIT/ML VIAL SQ SCH (05:14)
[2016-05-28 07:23] LABS: Basophils % 0.2 %; Eosinophils # 0.1 K/mcL (0.0-0.6); Eosinophils % 0.5 %; Hematocrit 42.1 % (37.5-50.1); Immature Granulocytes % 0.3 % (0-4); Immature Platelets 1.1 % (1.1-6.1); Lymphocytes # 1.6 K/mcL (0.6-4.6); Lymphocytes % 13.3 %; Mean Corpuscular HGB Conc 33.7 g/dL (31.6-35.5); Mean Corpuscular Hemoglobin 31.6 pg (28.0-33.3); Mean Corpuscular Volume 93.8 fL (83.0-100.0); Mean Platelet Volume 8.5 fL (9.4-12.4); Monocytes % 8.5 %; Neutrophils # 9.3 K/mcL (1.6-8.9); Platelet Count 262 K/mcL (140-400); Red Blood Count 4.49 M/mcL (4.19-5.50); Red Cell Distribution Width 12.8 % (11.5-14.5); Segmented Neutrophils % 77.2 %
[2016-05-28 07:34] LABS: Hemoglobin 14.2 g/dL (12.9-16.9)
[2016-05-28 07:41] LABS: Alanine Aminotransferase 420 Units/L (0-55); Albumin 3.3 g/dL (3.5-5.0); Albumin/Globulin Ratio 1.1 (1.1-2.2); Alkaline Phosphatase 107 Units/L (38-126); Aspartate Amino Transferase 165 Units/L (5-34); BUN/Creatinine Ratio 11 (6-26); Bilirubin,Total 0.3 mg/dL (0.2-1.2); Blood Urea Nitrogen 12 mg/dL (8-26); Calcium 8.6 mg/dL (8.6-10.8); Carbon Dioxide 26 mEq/L (19-29); Chloride 106 mEq/L (98-109); Creatine Kinase 591 Units/L (30-200); Globulin 3.1 g/dL (2.4-3.5); Glucose 76 mg/dL (70-99); Osmolality,Calculated 289 (280-300); Potassium 3.9 mEq/L (3.5-4.5); Sodium 140 mEq/L (136-145); eGFR For African Americans > 60 (> 60); eGFR For Non-African Americans > 60 (> 60)
[2016-05-28 07:42] LABS: Total Protein 6.4 g/dL (6.0-8.3)
[2016-05-28] MEDS: Chlorhexidine Rinse 15 ML MOUTHWASH MM SCH (08:05)
[2016-05-28] MEDS: Pantoprazole 40 MG VIAL IVP SCH (08:12)
[2016-05-28 08:22] VITALS: BP 114/66
[2016-05-28] MEDS ORDERED: *HR* Etomidate 40 MG/20 ML VIAL IVP ONE (08:55)
[2016-05-28] MEDS ORDERED: *HR* Rocuronium Bromide 100 MG/10 ML VIAL IVC ONE (08:55)
--- NOTE | 2016-05-28 10:24 | Discharge Summary ---
<Randy Thayer - Last Filed: 05/28/16 10:18> Date of Encounter: 05/28/16 Time of Encounter: 10:18 - Discharge Diagnosis (1) Acute respiratory failure with hypoxia and hypercapnia Priority: Primary Status: Acute (2) ELROY (acute kidney injury) Priority: Secondary Status: Acute (3) DVT prophylaxis Priority: Secondary Status: Acute (4) Elevated transaminase level Priority: Secondary Status: Acute (5) High anion gap metabolic acidosis Priority: Secondary Status: Acute (6) Illicit drug use Priority: Secondary Status: Acute (7) Lactic acidosis Priority: Secondary Status: Acute (8) SIRS (systemic inflammatory response syndrome) Priority: Secondary Status: Acute - Discharge Medications Home Medications: Unable To Obtain [Unable to Obtain] 05/27/16 [History] Allergies/Adverse Reactions: Allergies No Known Allergies Allergy (Verified 12/01/15 17:58) Labs on day of discharge: Labs from last 24 hours 05/28/16 05/28/16 05/28/16 07:03 07:03 07:03 WBC 12.0 H RBC 4.49 Hgb 14.2 D Hct 42.1 MCV 93.8 MCH 31.6 MCHC 33.7 RDW 12.8 Plt Count 262 MPV 8.5 L Immature Gran % 0.3 Seg Neutrophils % 77.2 Lymphocytes % 13.3 Monocytes % 8.5 Eosinophils % 0.5 Basophils % 0.2 Neutrophils # 9.3 H Lymphocytes # 1.6 Monocytes # 1.0 Eosinophils # 0.1 Basophils # 0.0 Immature Plt Fraction 1.1 ABG pH ABG pCO2 ABG pO2 ABG HCO3 ABG Total CO2 ABG O2 Saturation ABG Base Excess Inspired O2 Sodium 140 Potassium 3.9 Chloride 106 Carbon Dioxide 26 BUN 12 Creatinine 1.13 Est GFR ( Amer) > 60 Est GFR (Non-Af Amer) > 60 BUN/Creatinine Ratio 11 Glucose 76 POC Glucose Serum Osmolality Calculated Osmolality 289 Lactic Acid Calcium 8.6 Total Bilirubin 0.3 AST 165 H ALT 420 H Alkaline Phosphatase 107 Creatine Kinase 591 H Troponin I 0.03 Serum Total Protein 6.4 D Albumin 3.3 L Globulin 3.1 Albumin/Globulin Ratio 1.1 05/28/16 05/28/16 05/27/16 05:52 04:00 23:40 WBC RBC Hgb Hct MCV MCH MCHC RDW Plt Count MPV Immature Gran % Seg Neutrophils % Lymphocytes % Monocytes % Eosinophils % Basophils % Neutrophils # Lymphocytes # Monocytes # Eosinophils # Basophils # Immature Plt Fraction ABG pH 7.34 ABG pCO2 52 H ABG pO2 126 H ABG HCO3 28.1 H ABG Total CO2 29.7 H ABG O2 Saturation 99 H ABG Base Excess 1.4 Inspired O2 40 Sodium Potassium Chloride Carbon Dioxide BUN Creatinine Est GFR ( Amer) Est GFR (Non-Af Amer) BUN/Creatinine Ratio Glucose POC Glucose 95 H 100 H Serum Osmolality Calculated Osmolality Lactic Acid Calcium Total Bilirubin AST ALT Alkaline Phosphatase Creatine Kinase Troponin I Serum Total Protein Albumin Globulin Albumin/Globulin Ratio 05/27/16 05/27/16 05/27/16 22:06 16:27 16:09 WBC RBC Hgb Hct MCV MCH MCHC RDW Plt Count MPV Immature Gran % Seg Neutrophils % Lymphocytes % Monocytes % Eosinophils % Basophils % Neutrophils # Lymphocytes # Monocytes # Eosinophils # Basophils # Immature Plt Fraction ABG pH ABG pCO2 ABG pO2 ABG HCO3 ABG Total CO2 ABG O2 Saturation ABG Base Excess Inspired O2 Sodium 139 Potassium 4.6 H D Chloride 109 Carbon Dioxide 23 BUN 15 Creatinine 1.21 Est GFR ( Amer) > 60 Est GFR (Non-Af Amer) > 60 BUN/Creatinine Ratio 12 Glucose 82 POC Glucose Serum Osmolality 295 Calculated Osmolality 288 Lactic Acid Calcium 8.6 Total Bilirubin AST ALT Alkaline Phosphatase Creatine Kinase Troponin I 0.03 Serum Total Protein Albumin Globulin Albumin/Globulin Ratio 05/27/16 05/27/16 05/27/16 16:09 16:09 10:25 WBC RBC Hgb Hct MCV MCH MCHC RDW Plt Count MPV Immature Gran % Seg Neutrophils % Lymphocytes % Monocytes % Eosinophils % Basophils % Neutrophils # Lymphocytes # Monocytes # Eosinophils # Basophils # Immature Plt Fraction ABG pH ABG pCO2 ABG pO2 ABG HCO3 ABG Total CO2 ABG O2 Saturation ABG Base Excess Inspired O2 Sodium Potassium Chloride Carbon Dioxide BUN Creatinine Est GFR ( Amer) Est GFR (Non-Af Amer) BUN/Creatinine Ratio Glucose POC Glucose 83 Serum Osmolality Calculated Osmolality Lactic Acid 0.8 Calcium Total Bilirubin AST ALT Alkaline Phosphatase Creatine Kinase Troponin I 0.04 H* Serum Total Protein Albumin Globulin Albumin/Globulin Ratio Date of admission: 05/27/16 09:41 Primary care physician: PCP NO Discharging clinician: Randy Thayer Anticipated date of discharge: 05/28/16 - Patient Status Disposition: Left Against Medical Advice Condition: Critical Functional capacity at discharge: independent ambulation Overall status at discharge: patient is not back to baseline - Discharge Instructions Follow Up With: NO,PCP [Primary Care Provider] - - Diet and Activity Activity: ambulate only with your walker Diet: advance to your usual diet - Hospital Course Hospital course: Mr. 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 Patient's girlfriend found him sitting on the chair at home unresponsive, where he arrived in the ER , patient was having agonal breathing, agitated and combative, total 16 mg of Narcan were given with only a modest reversal in his respiratory status and mentation therefore he was intubated in the ER for airway securement. Labs showed leukocytosis over 20.1, serum creatinine of 1.94, lactic acid of 9.7 and elevated transaminases, urine drug screen was positive for marijuana and cocaine , initial vital signs showed hypothermia of 94.4 Fahrenheit, tachycardia and tachypnea. Chest x-ray, head and cervical CT showed no acute process. According to patient's family members and girlfriend at the bedside stated that last well-known time was last night around 1:30 AM, he was having a cold symptoms and sleeping issue therefore he was taking [id number] zzzquil and mucinex, unclear use of illicit drug overnight. Patient was transferred to ICU for management. His leuckocytosis, lactic acidosis, elevated transaminases, ELROY, and mixed respiratory acidosis with metabolic acidosis was resolved. Early this morning patient self extubated and requested to go home. He was told about the risks of leaving AMA. Patient was alert and oriented x3. He passed swallow eval and had good oral intake. He was ambulatory. He signed out AMA and left with his mother. - Time Spent with Patient Total time spent providing and/or coordinating discharge services: Physical Examination Vital Signs: Vital Signs, Last 4 Hours Temp Pulse Resp BP Pulse Ox 05/28/16 08:20 110 18 114/66 05/28/16 07:59 99.3 F 05/28/16 07:30 99 05/28/16 07:00 99 18 132/91 97 General appearance: no acute distress, agitated Eyes: nonicteric ENT: oropharynx moist Neck: supple Effort: normal Inspection: normal Auscultation: bilateral: clear Percussion: bilateral: not dull Tactile fremitus: bilateral: normal Cardiovascular: other (sinus tachcyardia) Gastrointestinal: normoactive bowel sounds, non-distended Integumentary: normal Extremities: no cyanosis, no edema, no clubbing Musculoskeletal: no deformities, ROM normal normal mental status, non-focal exam mood appropriate, anxious <SaadlJoaquín moore M - Last Filed: 05/28/16 11:16> Labs on day of discharge: Labs from last 24 hours 05/28/16 05/28/16 05/28/16 07:03 07:03 07:03 WBC 12.0 H RBC 4.49 Hgb 14.2 D Hct 42.1 MCV 93.8 MCH 31.6 MCHC 33.7 RDW 12.8 Plt Count 262 MPV 8.5 L Immature Gran % 0.3 Seg Neutrophils % 77.2 Lymphocytes % 13.3 Monocytes % 8.5 Eosinophils % 0.5 Basophils % 0.2 Neutrophils # 9.3 H Lymphocytes # 1.6 Monocytes # 1.0 Eosinophils # 0.1 Basophils # 0.0 Immature Plt Fraction 1.1 ABG pH ABG pCO2 ABG pO2 ABG HCO3 ABG Total CO2 ABG O2 Saturation ABG Base Excess Inspired O2 Sodium 140 Potassium 3.9 Chloride 106 Carbon Dioxide 26 BUN 12 Creatinine 1.13 Est GFR ( Amer) > 60 Est GFR (Non-Af Amer) > 60 BUN/Creatinine Ratio 11 Glucose 76 POC Glucose Serum Osmolality Calculated Osmolality 289 Lactic Acid Calcium 8.6 Total Bilirubin 0.3 AST 165 H ALT 420 H Alkaline Phosphatase 107 Creatine Kinase 591 H Troponin I 0.03 Serum Total Protein 6.4 D Albumin 3.3 L Globulin 3.1 Albumin/Globulin Ratio 1.1 05/28/16 05/28/16 05/27/16 05:52 04:00 23:40 WBC RBC Hgb Hct MCV MCH MCHC RDW Plt Count MPV Immature Gran % Seg Neutrophils % Lymphocytes % Monocytes % Eosinophils % Basophils % Neutrophils # Lymphocytes # Monocytes # Eosinophils # Basophils # Immature Plt Fraction ABG pH 7.34 ABG pCO2 52 H ABG pO2 126 H ABG HCO3 28.1 H ABG Total CO2 29.7 H ABG O2 Saturation 99 H ABG Base Excess 1.4 Inspired O2 40 Sodium Potassium Chloride Carbon Dioxide BUN Creatinine Est GFR ( Amer) Est GFR (Non-Af Amer) BUN/Creatinine Ratio Glucose POC Glucose 95 H 100 H Serum Osmolality Calculated Osmolality Lactic Acid Calcium Total Bilirubin AST ALT Alkaline Phosphatase Creatine Kinase Troponin I Serum Total Protein Albumin Globulin Albumin/Globulin Ratio 05/27/16 05/27/16 05/27/16 22:06 16:27 16:09 WBC RBC Hgb Hct MCV MCH MCHC RDW Plt Count MPV Immature Gran % Seg Neutrophils % Lymphocytes % Monocytes % Eosinophils % Basophils % Neutrophils # Lymphocytes # Monocytes # Eosinophils # Basophils # Immature Plt Fraction ABG pH ABG pCO2 ABG pO2 ABG HCO3 ABG Total CO2 ABG O2 Saturation ABG Base Excess Inspired O2 Sodium 139 Potassium 4.6 H D Chloride 109 Carbon Dioxide 23 BUN 15 Creatinine 1.21 Est GFR ( Amer) > 60 Est GFR (Non-Af Amer) > 60 BUN/Creatinine Ratio 12 Glucose 82 POC Glucose Serum Osmolality 295 Calculated Osmolality 288 Lactic Acid Calcium 8.6 Total Bilirubin AST ALT Alkaline Phosphatase Creatine Kinase Troponin I 0.03 Serum Total Protein Albumin Globulin Albumin/Globulin Ratio 05/27/16 05/27/16 16:09 16:09 WBC RBC Hgb Hct MCV MCH MCHC RDW Plt Count MPV Immature Gran % Seg Neutrophils % Lymphocytes % Monocytes % Eosinophils % Basophils % Neutrophils # Lymphocytes # Monocytes # Eosinophils # Basophils # Immature Plt Fraction ABG pH ABG pCO2 ABG pO2 ABG HCO3 ABG Total CO2 ABG O2 Saturation ABG Base Excess Inspired O2 Sodium Potassium Chloride Carbon Dioxide BUN Creatinine Est GFR ( Amer) Est GFR (Non-Af Amer) BUN/Creatinine Ratio Glucose POC Glucose Serum Osmolality Calculated Osmolality Lactic Acid 0.8 Calcium Total Bilirubin AST ALT Alkaline Phosphatase Creatine Kinase Troponin I 0.04 H* Serum Total Protein Albumin Globulin Albumin/Globulin Ratio Date of admission: 05/27/16 09:41 Primary care physician: PCP NO - Hospital Course Hospital course: Mr. Mckinley is a 26 year old male - Time Spent with Patient Total time spent providing and/or coordinating discharge services: Physical Examination Vital Signs: Vital Signs, Last 4 Hours Temp Pulse Resp BP 05/28/16 08:20 110 18 114/66 05/28/16 07:59 99.3 F 05/28/16 07:30 99 - Attending Attestation I examined this patient and my medical decision-making was reviewed with the [employer] ASSISTANT/PA/Advanced Practice Nurse/Resident Physician. I agree with the documented findings, disposition and treatment plan as described except to the extent set forth below. Patient alert and oriented in the mother at the bedside wanted to go home AGAINST MEDICAL ADVICE and explained to him with his lifestyle and the fact he was recently on a ventilator he could not and he understand he wanted to go home.
== END 2016-05-28 08:56 | disposition left against medical advice (07) | DRG 951 ==
LOC: EMEROO 06:40 → ICNU 09:41
PROVIDERS: ADMIT Internal Medicine Pulmonary Disease; ATTEND Internal Medicine Pulmonary Disease